=== PATIENT | female | born 1975 | race Two or more races ===

== ENCOUNTER 2020-12-06 09:54 | Emergency (ER) | payer MEDICAID, OTHER ==
[~2020-12-06] VITALS: Ht 160 cm; Wt 79.4 kg
[2020-12-06 10:03] VITALS: BP 149/65
[2020-12-06] MEDS ORDERED: ACYC-108 PO (10:16)
[2020-12-06] MEDS ORDERED: HYDR-4303 PO (10:17)
--- NOTE | 2020-12-06 10:30 | NUR ---
Patient discharged to home in stable condition. Written and verbal after care instructions given. Patient verbalizes understanding of instruction.
== END 2020-12-06 10:31 | disposition home or self-care (01) ==
LOC: ER 10:01
DX: B02.9 Zoster without complications (principal); E11.9 Type 2 diabetes mellitus without complications; Z79.899 Other long term (current) drug therapy